=== PATIENT | male | born 1975 | race Caucasian/White ===

== ENCOUNTER 2017-02-11 13:18 | Emergency (ER) | payer MEDICAID ==
[2017-02-11 13:39] VITALS: BP 139/79
[2017-02-11] MEDS ORDERED: Albuterol 0.083% 2.5 MG/3 ML Neb Soln NEB ONE ×2 (14:13→15:17)
--- NOTE | 2017-02-11 14:14 | EDM.PDOC ---
ED HISTORY OF PRESENT ILLNESS - General Chief Complaint: Respiratory Problem Stated Complaint: COUGH, FEVER, ACHY Time Seen by Provider: 02/11/17 14:14 Source: Reports: Patient, Family History Limitations: Reports: No limitations - History of Present Illness INITIAL COMMENTS - FREE TEXT/NARRATIVE: Pt arrived diaphoretic, coughing a great deal. he is raisng green to yellow sputum. he does not have a fever. Timing/Duration: Reports: Day(s):, Getting worse, Other ( chest is feeling tight and he is wheezing. ) Severity: moderate Location, General: Reports: chest Associated Symptoms: Reports: cough, diaphoresis, fever/chills, shortness of breath, weakness - Related Data Allergies/ADRs: Allergies Allergy/AdvReac Type Severity Reaction Status Date / Time No Known Allergies Allergy Verified 02/11/17 13:34 Home Meds: Home Meds NK [No Known Home Meds] 10/22/16 [History] Past Medical History - Past Health History Medical/Surgical History: Denies Medical/Surgical History Social & Family History - Tobacco Use Smoking Status *Q: Never Smoker Second Hand Smoke Exposure: No - Alcohol Use Days Per Week of Alcohol Use: 2 Number of Drinks Per Day: 2 Total Drinks Per Week: 4 - Recreational Drug Use Recreational Drug Use: No Drug Use in Last 12 Months: Yes Recreational Drug Type: Reports: Marijuana/Hashish, Methamphetamine ED ROS GENERAL - Review of Systems Review Of Systems: See Below Constitutional: Reports: fever, chills, malaise HEENT: Reports: Other ( throat is irritated. ) Respiratory: Reports: Shortness of Breath, Wheezing, Cough Cardiovascular: Reports: No symptoms Endocrine: Reports: no symptoms GI/Abdominal: Reports: No symptoms : Reports: no symptoms ED EXAM, GENERAL - Physical Exam Exam: See Below Free Text/Narrative:: Pt has been diaphoretic and coughing. Exam Limited By: Respiratory distress General Appearance: alert, moderate distress Ears: normal TMs Nose: normal inspection Throat/Mouth: Normal inspection Head: atraumatic Neck: normal inspection Respiratory/Chest: decreased breath sounds, wheezing Cardiovascular: regular rate, rhythm Peripheral Pulses: 0: carotid (L) GI/Abdominal: soft, non tender (Male) Exam: Deferred Rectal (Males) Exam: Deferred Back Exam: normal inspection Extremities: normal inspection Neurological: alert, oriented, normal cognition Psychiatric: normal affect Course - Vital Signs Last Recorded V/S: Last Vital Signs Temp 36.5 C 02/11/17 13:36 Pulse 80 02/11/17 13:36 Resp 16 02/11/17 13:36 BP 139/79 02/11/17 13:36 Pulse Ox 96 02/11/17 13:36 - Orders/Labs/Meds Orders: Active Orders 24 hr Category Date Time Status RT Aerosol Therapy [RC] ASDIRECTED Care 02/11/17 14:13 Active RT Aerosol Therapy [RC] ASDIRECTED Care 02/11/17 15:17 Ordered Chest 2V [CR] Stat Exams 02/11/17 14:13 Taken UA W/MICROSCOPIC [URIN] Urgent Lab 02/11/17 15:03 Ordered Albuterol [Proventil Neb Soln] Med 02/11/17 15:17 Once 2.5 mg NEB ONETIME ONE Labs: Laboratory Tests 02/11/17 02/11/17 Range/Units 14:21 14:21 WBC 7.1 (4.5-11.0) K/uL RBC 5.01 (4.30-5.90) M/uL Hgb 15.6 H (12.0-15.0) g/dL Hct 43.5 (40.0-54.0) % MCV 87 (80-98) fL MCH 31 (27-31) pg MCHC 36 (32-36) % Plt Count 264 (150-400) K/uL Neut % (Auto) 63 (36-66) % Lymph % (Auto) 19 L (24-44) % Citrus % (Auto) 15 H (2-6) % Eos % (Auto) 3 (2-4) % Baso % (Auto) 0 (0-1) % Sodium 137 L (140-148) mmol/L Potassium 4.3 (3.6-5.2) mmol/L Chloride 101 (100-108) mmol/L Carbon Dioxide 30 (21-32) mmol/L Anion Gap 10.3 (5.0-14.0) mmol/L BUN 17 (7-18) mg/dL Creatinine 1.0 (0.8-1.3) mg/dL Est Cr Clr Drug Dosing 96.23 mL/min Estimated GFR (MDRD) > 60 (>60) Glucose 102 (74-106) mg/dL Calcium 8.9 (8.5-10.1) mg/dL Total Bilirubin 0.6 (0.2-1.0) mg/dL AST 43 H (15-37) U/L ALT 52 (12-78) U/L Alkaline Phosphatase 92 (46-116) U/L Total Protein 8.1 (6.4-8.2) g/dL Albumin 3.9 (3.4-5.0) g/dL Globulin 4.2 H (2.3-3.5) g/dL Albumin/Globulin Ratio 0.9 L (1.2-2.2) Meds: Medications Discontinued Medications Generic Name Dose Route Start Last Admin Trade Name Freq PRN Reason Stop Dose Admin Albuterol 2.5 mg 02/11/17 14:13 02/11/17 14:37 Proventil Neb Soln NEB 02/11/17 14:14 2.5 mg ONETIME ONE Administration - Re-Assessments/Exams Free Text/Narrative Re-Assessment/Exam: 02/11/17 15:26 Pt arrived with sob and wheezing. He has had 2 nebs and is doing better. His chest xray did not show a infiltrate. His wbc is not high. Departure - Departure Time of Disposition: 15:27 Disposition: Home, Self-Care 01 Condition: fair Clinical Impression: Bronchitis, Bronchospasm Forms: ED Department Discharge Care Plan Goals: push fluids, cool mist humidifier, albuterol inhaler 2 puffs qid, zithromax, robitussin ac 2 tsp q6h prn for cough. - My Orders Last 24 Hours: My Active Orders 02/11/17 14:13 RT Aerosol Therapy [RC] ASDIRECTED Chest 2V [CR] Stat 02/11/17 15:03 UA W/MICROSCOPIC [URIN] Urgent 02/11/17 15:17 RT Aerosol Therapy [RC] ASDIRECTED Albuterol [Proventil Neb Soln] 2.5 mg NEB ONETIME ONE - Assessment/Plan Last 24 Hours: My Active Orders 02/11/17 14:13 RT Aerosol Therapy [RC] ASDIRECTED Chest 2V [CR] Stat 02/11/17 15:03 UA W/MICROSCOPIC [URIN] Urgent 02/11/17 15:17 RT Aerosol Therapy [RC] ASDIRECTED Albuterol [Proventil Neb Soln] 2.5 mg NEB ONETIME ONE
--- NOTE | 2017-02-12 09:16 | CR ---
Chest 2V INDICATION: sob FINDINGS: Negative chest.
== END 2017-02-11 15:34 | disposition home or self-care (01) ==
LOC: JP.ED 13:18
DX: J40 Bronchitis, not specified as acute or chronic (principal); J98.01 Acute bronchospasm
CPT/HCPCS: 36415; 71020; 71020-26; 80053; 81001; 85025; 87804; 99284-25

== ENCOUNTER 2017-05-26 23:36 | Emergency (ER) | payer MEDICAID | END 2017-05-27 00:13 | disposition left against medical advice (07) | LOC: JP.ED 23:36 | DX: Z53.21 Procedure and treatment not carried out due to patient leaving prior to being seen by health care provider (principal) ==

== ENCOUNTER 2022-04-24 12:33 | Emergency (ER) | payer BC, MEDICAID ==
[2022-04-24 12:46] VITALS: BP 186/102; PULSE 70
[2022-04-24] MEDS ORDERED: Sodium Chloride 0.9% 10 ML Syringe FLUSH PRN ×2 (13:13→14:05)
[2022-04-24] MEDS ORDERED: Sodium Chloride 0.9% 1,000 ML IV STA (13:13)
[2022-04-24] MEDS ORDERED: Ondansetron 4 MG/2 ML SDV IVPUSH ONE (13:16)
[2022-04-24] MEDS ORDERED: fentaNYL 100 MCG/2 ML SDV IVPUSH ONE (13:16)
[2022-04-24 13:53] LABS: ESTIMATED GFR 68 mL/min (>60)
[2022-04-24] MEDS ORDERED: HYDROmorphone 1 MG/ML Syringe IVPUSH ONE (13:56)
[2022-04-24] MEDS ORDERED: Sodium Chloride 0.9% 50 ML IV ONE (14:05)
[2022-04-24] MEDS ORDERED: Iopamidol 612 MG/ML 100 ML Bottle IV PRN (14:05)
[2022-04-24] MEDS ORDERED: Ketorolac 30 MG/ML SDV IVPUSH ONE (14:39)
== END 2022-04-24 15:59 | disposition home or self-care (01) ==
LOC: JP.ED 12:33
DX: N20.0 Calculus of kidney (principal)
CPT/HCPCS: 36415; 74177; 80053; 83605; 83690; 85025; 96361; 96374; 96375; 99284; J1170; J1885; J2405; J3010; J3490; J7030; Q9967

== ENCOUNTER 2022-04-26 06:46 | Emergency (ER) | payer MEDICAID ==
[2022-04-26] MEDS ORDERED: Ondansetron 4 MG/2 ML SDV IVPUSH ONE (07:13)
[2022-04-26] MEDS ORDERED: Ketorolac 30 MG/ML SDV IVPUSH ONE (07:13)
[2022-04-26] MEDS ORDERED: HYDROmorphone 1 MG/ML Syringe IVPUSH ONE ×3 (07:48→10:00)
[2022-04-26] MEDS ORDERED: Sodium Chloride 0.9% 1,000 ML IV SCH ×2 (08:00→10:15)
[2022-04-26] MEDS ORDERED: cefTRIAXone 1 GM in Sodium Chloride 0.9% 50 ML IV ONE (10:04)
[2022-04-26 10:08] LABS: ESTIMATED GFR 68 mL/min (>60)
[2022-04-26 10:16] VITALS: BP 123/70; PULSE 52
== END 2022-04-26 11:16 ==
LOC: JP.ED 06:46
DX: N13.2 Hydronephrosis with renal and ureteral calculous obstruction (principal); Z79.899 Other long term (current) drug therapy; Z20.822 Contact with and (suspected) exposure to COVID-19
CPT/HCPCS: 36415; 80053; 85025; 96361; 96365; 96375; 96376; 99283; 99284-25; J0696; J1170; J1885; J2405; J7030; U0002

== ENCOUNTER 2023-04-15 11:18 | Emergency (ER) | payer BC, MEDICAID ==
[2023-04-15 12:01] VITALS: BP 123/82; PULSE 85
[2023-04-15] MEDS ORDERED: Sodium Chloride 0.9% 10 ML Syringe FLUSH PRN (12:04)
[2023-04-15 12:31] LABS: BASOPHILS ABSOLUTE AUTO 0.03 K/uL (0.00-0.10); BASOPHILS PERCENT AUTO 0.2 % (0.1-1.3); EOSINOPHILS ABSOLUTE AUTO 0.18 K/uL (0.00-0.40); EOSINOPHILS PERCENT AUTO 1.5 % (0.0-5.4); HEMATOCRIT 42.8 % (38.4-49.7); HEMOGLOBIN 15.4 g/dL (12.9-16.9); IMMATURE GRAN ABSOLUTE AUTO 0.05 K/uL (0.00-0.23); IMMATURE GRAN PERCENT AUTO 0.4 % (0.0-0.7); LYMPHOCYTES ABSOLUTE AUTO 3.23 K/uL (0.8-3.3); LYMPHOCYTES PERCENT AUTO 26.7 % (11.4-47.7); MEAN CORPUSCULAR HEMOGLOBIN 31.5 pg (31.6-35.5); MEAN CORPUSCULAR VOLUME 87.5 fL (81.4-99.0); MONOCYTES ABSOLUTE AUTO 1.02 K/uL (0.20-0.90); MONOCYTES PERCENT AUTO 8.4 % (3.3-12.6); NEUTROPHILS ABSOLUTE AUTO 7.59 K/uL (1.0-7.6); NEUTROPHILS PERCENT AUTO 62.8 % (40.0-78.1); PLATELET COUNT,PLT 253 K/uL (130-375); RED BLOOD CELL COUNT 4.89 M/uL (4.14-5.76); WHITE BLOOD CELL COUNT,WBC 12.1 K/uL (3.2-11.0)
== END 2023-04-15 14:44 | disposition home or self-care (01) ==
LOC: JP.ED 11:18
DX: L02.811 Cutaneous abscess of head [any part, except face] (principal); L03.213 Periorbital cellulitis; H60.11 Cellulitis of right external ear
CPT/HCPCS: 10060; 36415; 85025; 86140; 87070; 87077; 87186; 87205; 96365; 96366; 99284; J3370; J7050

== ENCOUNTER 2023-08-16 21:51 | Emergency (ER) | payer MEDICAID ==
[2023-08-16 22:13] VITALS: BP 133/88; PULSE 96
[2023-08-16] MEDS ORDERED: methylPREDNISolone Sodium Succinate 125 MG/2 ML SDV IVPUSH ONE (22:45)
[2023-08-16] MEDS ORDERED: Ketorolac 30 MG/ML SDV IVPUSH ONE (22:45)
[2023-08-16] MEDS ORDERED: Doxycycline 200 MG in Sodium Chloride 0.9% 250 ML IV ONE (22:45)
[2023-08-16] MEDS ORDERED: fentaNYL 50 MCG/ML SDV IVPUSH ONE (22:58)
== END 2023-08-17 01:01 | disposition home or self-care (01) ==
LOC: JP.ED 21:51
DX: L02.11 Cutaneous abscess of neck (principal)
CPT/HCPCS: 10060; 87070; 87077; 87186; 87205; 96365; 96366; 96375; 99283; J1885; J2930; J3010; J3490; J7050

== ENCOUNTER 2023-12-28 07:04 | Day surgery (SDC) | payer MEDICAID ==
[2023-12-28] MEDS ORDERED: Propofol 200 MG/20 ML SDV ONE (07:17)
[2023-12-28] MEDS ORDERED: Midazolam 1 MG/ML 2 ML SDV ONE (07:17)
[2023-12-28] MEDS ORDERED: fentaNYL 100 MCG/2 ML SDV ONE (07:17)
[2023-12-28] MEDS: Lactated Ringers 1,000 ML IV SCH (08:14)
[2023-12-28] MEDS ORDERED: Lactated Ringers 1,000 ML IV SCH ×2 (09:30→10:30)
[2023-12-28 11:29] VITALS: BP 119/67; PULSE 72
== END 2023-12-28 11:10 | disposition home or self-care (01) ==
LOC: JP.SDS 07:04
PROVIDERS: ATTEND Student in an Organized Health Care Education/Training Program
DX: Z12.11 Encounter for screening for malignant neoplasm of colon (principal); K57.30 Diverticulosis of large intestine without perforation or abscess without bleeding; L02.11 Cutaneous abscess of neck; E66.9 Obesity, unspecified; Z87.891 Personal history of nicotine dependence; Z79.899 Other long term (current) drug therapy; Z68.38 Body mass index [BMI] 38.0-38.9, adult; Z98.890 Other specified postprocedural states
CPT/HCPCS: 45378; J2250; J2704; J3010; J7120

== ENCOUNTER 2023-12-31 16:18 | Emergency (ER) | payer MEDICAID ==
[2023-12-31 18:03] VITALS: BP 143/92; PULSE 92
[2023-12-31] MEDS: Lidocaine 1% with EPINEPHrine 1:100,000 50 ML MDV INJECT ONE (19:02)
[2023-12-31] MEDS: Bacitracin Oint 1 GM U/D Packet TOP ONE (19:02)
== END 2023-12-31 19:08 | disposition home or self-care (01) ==
LOC: JP.ED 16:18
DX: S91.312A Laceration without foreign body, left foot, initial encounter (principal); Z79.899 Other long term (current) drug therapy; W22.8XXA Striking against or struck by other objects, initial encounter; Y93.89 Activity, other specified
CPT/HCPCS: 12001; 99283

== ENCOUNTER 2024-01-03 08:46 | Emergency (ER) | payer MEDICAID ==
[2024-01-03 09:09] VITALS: BP 135/89; PULSE 87
[2024-01-03] MEDS ORDERED: Sulfamethoxazole/Trimethoprim 800-160 MG Tab PO ONE (09:32)
[2024-01-03] MEDS: Ketorolac 30 MG/ML SDV IM ONE (09:49)
[2024-01-03] MEDS: Sulfamethoxazole/Trimethoprim 800-160 MG Tab PO STA (09:55)
[2024-01-03 10:01] LABS: BASOPHILS ABSOLUTE AUTO 0.05 K/uL (0.00-0.10); BASOPHILS PERCENT AUTO 0.4 % (0.1-1.3); EOSINOPHILS ABSOLUTE AUTO 0.16 K/uL (0.00-0.40); EOSINOPHILS PERCENT AUTO 1.3 % (0.0-5.4); HEMOGLOBIN 16.2 g/dL (12.9-16.9); IMMATURE GRAN ABSOLUTE AUTO 0.03 K/uL (0.00-0.23); IMMATURE GRAN PERCENT AUTO 0.2 % (0.0-0.7); LYMPHOCYTES ABSOLUTE AUTO 2.82 K/uL (0.8-3.3); LYMPHOCYTES PERCENT AUTO 23.3 % (11.4-47.7); MEAN CORPUSCULAR HEMOGLOBIN 30.7 pg (31.6-35.5); MEAN CORPUSCULAR VOLUME 85.4 fL (81.4-99.0); MONOCYTES ABSOLUTE AUTO 1.13 K/uL (0.20-0.90); MONOCYTES PERCENT AUTO 9.3 % (3.3-12.6); NEUTROPHILS ABSOLUTE AUTO 7.93 K/uL (1.0-7.6); NEUTROPHILS PERCENT AUTO 65.5 % (40.0-78.1); PLATELET COUNT,PLT 232 K/uL (130-375); RED BLOOD CELL COUNT 5.27 M/uL (4.14-5.76); WHITE BLOOD CELL COUNT,WBC 12.1 K/uL (3.2-11.0)
[2024-01-03 10:12] LABS: CALCIUM 9.2 mg/dL (8.5-10.1); CREATININE 0.9 mg/dL (0.8-1.3); EST CRCL DRUG DOSING (CG) 100.38 mL/min; POTASSIUM,K 4.1 mmol/L (3.6-5.2)
[2024-01-03 10:13] LABS: ANION GAP 13.1 mmol/L (5.0-14.0)
== END 2024-01-03 11:05 | disposition home or self-care (01) ==
LOC: JP.ED 08:46
DX: L03.115 Cellulitis of right lower limb (principal); Z87.891 Personal history of nicotine dependence; Z79.899 Other long term (current) drug therapy
CPT/HCPCS: 36415; 80048; 83605; 85025; 87070; 87205; 96372; 99283; A9270; J1885; 87077; 87186

== ENCOUNTER 2024-01-21 10:55 | Inpatient (IN) | payer MEDICAID ==
[2024-01-21] MEDS ORDERED: Acetaminophen 325 MG Tab PO PRN (11:46)
[2024-01-21] MEDS ORDERED: Ondansetron 4 MG/2 ML SDV IV PRN (11:46)
[2024-01-21] MEDS ORDERED: Ibuprofen 600 MG Tab PO PRN (11:46)
[2024-01-21] MEDS ORDERED: Sennosides/Docusate Sodium 50-8.6 MG Tab PO PRN (11:46)
[2024-01-21] MEDS ORDERED: Sodium Chloride 0.9% 10 ML Syringe FLUSH PRN (11:46)
[2024-01-21] MEDS ORDERED: Magnesium Hydroxide 400 MG/5 ML Susp 30 ML Cup PO PRN (11:46)
[2024-01-21] MEDS ORDERED: Ondansetron 4 MG Tab.DIS PO PRN (11:46)
[2024-01-21 12:05] LABS: BASOPHILS ABSOLUTE AUTO 0.05 K/uL (0.00-0.10); BASOPHILS PERCENT AUTO 0.6 % (0.1-1.3); EOSINOPHILS ABSOLUTE AUTO 0.21 K/uL (0.00-0.40); EOSINOPHILS PERCENT AUTO 2.4 % (0.0-5.4); HEMATOCRIT 43.2 % (38.4-49.7); HEMOGLOBIN 15.3 g/dL (12.9-16.9); IMMATURE GRAN ABSOLUTE AUTO 0.04 K/uL (0.00-0.23); IMMATURE GRAN PERCENT AUTO 0.5 % (0.0-0.7); LYMPHOCYTES ABSOLUTE AUTO 3.04 K/uL (0.8-3.3); LYMPHOCYTES PERCENT AUTO 35.3 % (11.4-47.7); MEAN CORPUSCULAR HEMOGLOBIN 30.8 pg (31.6-35.5); MEAN CORPUSCULAR HGB CONC 35.4 g/dL (31.6-35.5); MEAN CORPUSCULAR VOLUME 87.1 fL (81.4-99.0); MONOCYTES ABSOLUTE AUTO 0.82 K/uL (0.20-0.90); MONOCYTES PERCENT AUTO 9.5 % (3.3-12.6); NEUTROPHILS ABSOLUTE AUTO 4.44 K/uL (1.0-7.6); NEUTROPHILS PERCENT AUTO 51.7 % (40.0-78.1); PLATELET COUNT,PLT 285 K/uL (130-375); RED BLOOD CELL COUNT 4.96 M/uL (4.14-5.76); WHITE BLOOD CELL COUNT,WBC 8.6 K/uL (3.2-11.0)
[2024-01-21 12:24] LABS: ANION GAP 9.9 mmol/L (5.0-14.0); BLOOD UREA NITROGEN,BUN 19 mg/dL (7-18); C-REACTIVE PROTEIN < 0.50 mg/dL (<0.50); CALCIUM 9.6 mg/dL (8.5-10.1); CARBON DIOXIDE,CO2 29 mmol/L (21-32); CHLORIDE,CL 101 mmol/L (100-108); ESTIMATED GFR 92 mL/min (>60); GLUCOSE RANDOM 106 mg/dL (74-106); POTASSIUM,K 4.2 mmol/L (3.6-5.2); SODIUM,NA 140 mmol/L (140-148)
[2024-01-21 12:31] LABS: CORONAVIRUS COVID-19 NAA NEGATIVE (NEGATIVE); INFLUENZA A NAA NEGATIVE (NEGATIVE); INFLUENZA B NAA NEGATIVE (NEGATIVE); RESPIRATORY SYNCYTIAL VIR NAA NEGATIVE (NEGATIVE)
[2024-01-21] MEDS: Lactobacillus Rhamnosus GG (Probiotic) Cap PO SCH (20:56)
[2024-01-22 12:47] VITALS: BP 141/86; PULSE 88
[2024-01-22] MEDS: Sodium Chloride 0.9% 100 ML IV ONE (15:30)
[2024-01-22] MEDS: Sodium Chloride 0.9% 10 ML Syringe FLUSH ONE (15:30)
[2024-01-22] MEDS: Iopamidol 612 MG/ML 100 ML Bottle IV ONE (15:30)
== END 2024-01-22 18:05 | disposition home or self-care (01) | DRG 603 ==
LOC: JP.ICU 10:55
PROVIDERS: ADMIT Internal Medicine; ATTEND Internal Medicine
DX: L03.115 Cellulitis of right lower limb (principal); Z79.899 Other long term (current) drug therapy; Z98.890 Other specified postprocedural states
CPT/HCPCS: 0241U; 36415; 73702-26-RT; 73702-RT; 76881-26-RT; 76881-RT; 80048; 84145; 85025; 86140; 99222; 99238; A9270-GY; J3370; J7050

== ENCOUNTER 2024-05-23 10:48 | Emergency (ER) | payer MEDICAID ==
[2024-05-23] MEDS: Lidocaine 1% with EPINEPHrine 1:100,000 20 ML MDV ONE (12:30)
[2024-05-23 19:00] VITALS: BP 156/106; PULSE 89
== END 2024-05-23 13:10 | disposition home or self-care (01) ==
LOC: JP.ED 10:48
DX: L73.9 Follicular disorder, unspecified (principal)
CPT/HCPCS: 10060; 99282-25; 99283